=== PATIENT | female | born 1935 | race Caucasian/White ===

== ENCOUNTER 2019-02-04 14:15 | Inpatient (IN) | payer OTHER ==
[~2019-02-04] VITALS: Ht 160 cm; Wt 59.4 kg
[~2019-02-04 14:15] MED LIST: ALBUTEROL2.5 MG/0.5 INH; ASPIRIN325 PO; ENOXAPARIN30 MG/0.1 SUBQ; FLOMAX0.4 MG PO; HUMALOG100 UNIT/1 SUBQ; MARINOL 2.5 MG2.5 M1 PO; MAXIPIME 1 GM/D51 G1 IV; NYSTATIN 1100000 U/M SW&SWALLOW; PROTONIX 20 MG20 M1 PO; SENNA PO
[2019-02-04 14:50] VITALS: BP 150/80
[2019-02-04] MEDS ORDERED: FERROUS SULFAT325 MG PO (16:33)
[2019-02-04] MEDS ORDERED: MEGESTROL400 MG/11 PO (16:34)
[2019-02-04] MEDS ORDERED: UNICOMPLEX M TA1 TA1 PO (16:34)
[2019-02-04] MEDS ORDERED: NORCO 5-325 TA1 EACH PO (16:35)
[2019-02-04] MEDS ORDERED: TYLENOL EXTRA500 MG PO (16:36)
--- NOTE | 2019-02-04 17:53 | NUR ---
PT TO THE UNIT FROM [facility] WITH ELEVATED TROPONIN. PT ASSESSMENT CHARTED, PT CONFUSED AND DISORIENTED, HAS BEEN INCONINTENT OF URINE. SEEN BY DOCTORS MORENA AND ROSALBA THIS AFTERNOON. ORDERS NOTED. PT WITH NO CO'S OF PAIN OR [place]. APPEARS TO BE RESTIGN COMFORTABLY AT THE PRESENT TIME.
[2019-02-04 20:15] VITALS: BP 134/66
[2019-02-04 23:32] VITALS: BP 139/56
[2019-02-04 23:34] VITALS: BP 139/62
[2019-02-04 23:36] VITALS: BP 138/55
--- NOTE | 2019-02-05 04:03 | NUR ---
ASSUMED PT CARE AT 1900. VSS. PT A&0X4 AT THE BEGINING OF THE SHIFT, AT 0000 WHEN REASSESSED, SHE WAS ONLY OREINTED TO TIME AND SELF. PT IS STABLE OVERNIGHT, NO COMPLAINTS OF CHEST PAIN, DYSPNEA OR DISCOMFORT. PT RESTED WELL OVERNIGHT, WILL CONTINUE TO MONITOR PER POC
[2019-02-05 04:45] VITALS: BP 113/88
[2019-02-05 05:58] LABS: CHOLESTEROL 138 mg/dL (<200); HDL CHOLESTEROL 25 mg/dL (>40); LDL CHOLESTEROL 92 mg/dL (<100); TC:HDL 5.5 Ratio (Not establshd); TRIGLYCERIDE 108 mg/dL (<150); VLDL 22 mg/dL (<40)
[2019-02-05 06:03] LABS: SERUM ASSESSMENT Clear
[2019-02-05 08:00] VITALS: BP 110/75
--- NOTE | 2019-02-05 09:01 | 2DMMODE ---
[facility] [place] [address] 2 D/M-MODE ECHOCARDIOGRAM Name: CRIS FUNES Room #: 205-P ADM IN M.R.#: [id number] ������������� Admission: 02/04/19 ������������� Attend Phys: Jovan Andrade MD Discharge: ��� ������������� ��� Date of : 33 Date of Service: 02/05/19 0900 �� Report #: [id number] �������� ��������������������������������������������[id number] THIS REPORT FOR: //name// APPROVED REPORT Study performed: 02/05/2019 08:21:33 EXAM: Comprehensive 2D, Doppler, and color-flow Echocardiogram Patient Location: Bedside Room #: [facility] Status: routine BSA: 1.62 HR: 79 bpm BP: 113/88 mmHg Rhythm: NSR Other Information Study Quality: Technically Limited Indications Elevated Troponin Aortic Valve AoV Peak Jose.: 0.98 m/s AO Peak Gr.: 3.85 mmHg LVOT Max P.79 mmHg LVOT Max V: 0.83 m/s AI Vmax: 3.08 m/s AI [place]: 2.02 m/s2 AI PHT: 443.39 ms Mitral Valve E/A Ratio: 0.6 MV Decel. Time: 283.36 ms MV E Max Jose.: 0.59 m/s MV A Jose.: 1.03 m/s MV PHT: 82.18 ms IVRT: 143.02 ms Pulmonary Valve PV Peak Jose.: 0.87 m/s PV Peak Gr.: 3.03 mmHg Left Ventricle The left ventricle is normal size. There is normal LV segmental wall motion. There is normal left ventricular wall thickness. The left ventricular systolic function is normal. The left ventricular [facility] [address] [place] [address] 2 D/M-MODE ECHOCARDIOGRAM Name: CRIS FUNES Room #: 205-P ADM IN .R.#: [id number] ������������� Admission: 02/04/19 ������������� Attend Phys: Jovan Andrade MD Discharge: ��� ������������� ��� Date of : 33 Date of Service: 02/05/19 0900 �� Report #: [id number] �������� ��������������������������������������������[id number] ejection fraction is within the normal range. LVEF is 55-60%. Mild diastolic dysfunction is present (impaired relaxation pattern). Right Ventricle Right ventricle is not well visualized. The right ventricular systolic function appears normal. Atria The left atrium size is normal. Right atrium is not well visualized. Aortic Valve Aortic valve is not well visualized. Mild aortic regurgitation. There is no aortic valvular stenosis. Mitral Valve Moderate mitral annular calcification. Mild mitral regurgitation. No evidence of mitral valve stenosis. Tricuspid Valve Tricuspid valve is not well visualized. The tricuspid valve appears normal in structure. There is no tricuspid valve regurgitation noted. Pulmonic Valve Pulmonic valve is not well visualized. There is no pulmonic valvular regurgitation. Great Vessels The aortic root is normal in size. IVC is not well visualized. Pericardium There is no pericardial effusion. <Conclusion> The left ventricular systolic function is normal. There is normal LV segmental wall motion. LVEF is 55-60%. Mild diastolic dysfunction Aortic valve is not well visualized. Mild aortic regurgitation, no stenosis. Moderate mitral annular calcification. Mild mitral [facility] [address] [place] [address] 2 D/M-MODE ECHOCARDIOGRAM Name: CRIS FUNES Room #: 205-P ADM IN ..#: [id number] ������������� Admission: 02/04/19 ������������� Attend Phys: Jovan Andrade MD Discharge: ��� ������������� ��� Date of : 33 Date of Service: 02/05/19899 �� Report #: [id number] �������� ��������������������������������������������[id number] regurgitation. There is no pericardial effusion. ��������������������������������������������� <ELECTRONICALLY SIGNED> ���������������������������������������� By: Sedrick Sam MD, [facility] ��������������������������������������������� 02/05/19899 9 9 Sedrick Sam MD, [facility] /INF
--- NOTE | 2019-02-05 09:44 | EKG ---
[address] [place] [address] ELECTROCARDIOGRAM REPORT Name: CRIS FUNES Room #: 205- ADM IN M.R.#: [id number] ������������������ Admission: 02/04/19 ������������������ Attend Phys: Jovan Andrade MD Discharge: ������������������ Date of : 33 Report #: [id number] ����������������������������������������������������������������� [id number] THIS REPORT FOR: //name// [facility] Test Date: 2019-02-04 Test Time: 17:10:09 Pat Name: CRIS FUNES Department: Room: 205 Gender: F [employer] Superintendent: Jimena BECK : 1935 Requested By: Nina Garnett Order Number: [id number] MD: Sedrick Sam Measurements Intervals [place] Rate: 75 P: 40 LA: 171 QRS: -51 QRSD: 122 T: 96 QT: 451 QTc: 504 Interpretive Statements Sinus rhythm Left bundle branch block Compared to ECG 08/15/2016 07:38:58 Sinus tachycardia no longer present Electronically Signed On 02-05-2019 9:44:28 CDT by Sedrick Sam [email or web address] ��������������������������������������������� <ELECTRONICALLY SIGNED> ���������������������������������������� By: Sedrick Sam MD, [facility] ��������������������������������������������� 02/05/19 0944 09 09 Sedrick Sam MD, [facility] /EPI
--- NOTE | 2019-02-05 11:58 | NUR ---
Pt admitted yesterday with elev troponin and recent UTI at the half-way. Assistant Men'S Lacrosse Coach visited with the pt at bedside and her cousin/dpoa Giana via phone. Giana indicates that the pt is from [facility]. She was there for skilled rehab and transitioned recently to ltc as she is was not able to return to her [facility] apt. She is currently getting part B therapies. Assistant Men'S Lacrosse Coach spoke with [facility] and they are holding her room. They can accept her back and dc for today confirmed. DC project planner faxed orders and arranged [facility] transport as the pt is max assist and too weak to tolerate riding in a w/c for the trip to [place]. Cousin and the pt are agreeable to her return to the facility and aware of the dc plan for today. Chart copy in progress and nursing has called report. [facility] arranged for 1330 transport. All parties updated. Pt's secondary ins is [employer] and admitting was notified to update the face sheet.
--- NOTE | 2019-02-05 12:09 | NUR ---
PT. DISCHARGING TODAY BACK TO [facility] FAXED DC ORDERS/SUMMARY TO FACILITY LEFT [facility] WITH [facility] IN ADM THAT PT. TRANSPORT TIME IS 1330. PT'S FAMILY NOTIFIED BY RICHARD AND UNIT NOTIFIED AND CHART COPY PER US. RN TO CALL REPORT TO [phone].
--- NOTE | 2019-02-05 16:04 | NUR ---
ASSESSMENT CHARTED - MEDS PER MAR - NO CO'S OF PAIN OR NAUSEA. JUDITH DIET AND FLUIDS. UP TO THE CHAIR. PT INCONTINENT OF URINE. PT TRANSFERED BACK TO [facility] THIS AFTERNOON VIA AMBULANCE - REPORT CALLED TO FACILTIY - NO CO'S AT TIME OF D/C.
== END 2019-02-05 14:45 | DRG 690 ==
LOC: 3N 14:15 → 2N 14:47
PROVIDERS: Nurse Practitioner; ADMIT Internal Medicine
DX: N39.0 Urinary tract infection, site not specified (principal); F32.9 Major depressive disorder, single episode, unspecified; M19.90 Unspecified osteoarthritis, unspecified site; K21.9 Gastro-esophageal reflux disease without esophagitis; D63.8 Anemia in other chronic diseases classified elsewhere; N18.9 Chronic kidney disease, unspecified; I44.7 Left bundle-branch block, unspecified; Z66 Do not resuscitate; M62.84 Sarcopenia; N32.81 Overactive bladder; Z93.3 Colostomy status; Z90.49 Acquired absence of other specified parts of digestive tract; Z79.899 Other long term (current) drug therapy
CPT/HCPCS: 10081